=== PATIENT | female | born 1945 | race Caucasian/White ===

== ENCOUNTER 2022-02-26 12:56 | Outpatient (CLI) | payer MEDICARE | END 2022-02-26 12:57 | disposition home or self-care (01) | LOC: CSHMAMMO 12:56 | PROVIDERS: ATTEND Internal Medicine | DX: Z12.31 Encounter for screening mammogram for malignant neoplasm of breast (principal); Z80.3 Family history of malignant neoplasm of breast | CPT/HCPCS: 77063; 77067 ==

== ENCOUNTER 2023-03-14 10:24 | Outpatient (CLI) | payer MEDICARE | END 2023-03-14 10:25 | disposition home or self-care (01) | LOC: CSHMAMMO 10:24 | PROVIDERS: ATTEND Internal Medicine | DX: Z12.31 Encounter for screening mammogram for malignant neoplasm of breast (principal); Z80.3 Family history of malignant neoplasm of breast | CPT/HCPCS: 77063; 77067 ==